=== PATIENT | female | born 1955 | race Caucasian/White ===

== ENCOUNTER 2017-07-29 16:34 | Emergency (ER) | payer MEDICARE ==
[2017-07-29] MEDS ORDERED: NORMAL SALINE 1,000 ML IV ONE (17:04)
[2017-07-29] MEDS ORDERED: ONDANSETRON HCL/PF 2 MG/ML VIAL IV ONE (17:04)
[2017-07-29 17:27] LABS: Hematocrit 28.8 % (37.0-47.0); Hemoglobin 8.3 gm/dL (12.5-16.0); Mean Cell Volume 73.7 fl (78-100); Mean Corpuscular Hemoglobin 21.2 pg (27-31); Mean Corpuscular Hgb Conc 28.8 g/dl (32-36); Mean Platelet Volume 8.8 fl (6.0-9.5); Neutrophil # 5.1 K/mm3 (1.3-6.0); Platelet Count 546 K/mm3 (150-450); Red Blood Count 3.91 M/mm3 (4.2-5.4); Red Cell Distribution Width 16.6 % (11.5-14.0); White Blood Count 7.2 K/mm3 (4.0-10.5)
--- NOTE | 2017-07-29 17:29 | ERNOTE ---
ER Female HPI Date of Service: 07/29/17 Stated Complaint: N/V, URINARY PAIN Presenting Symptoms: dysuria Time Seen by Provider: 07/29/17 16:57 Source: patient Exam Limitations: no limitations Immunizations: IMMUNIZATION HX Immunizations Up to Date Yes History of Influenza Vaccine No Hx Pneumococcal Vaccination No Allergies/Adverse Reactions: Allergies acetaminophen [From Tylenol] Adverse Reaction (Severe, Verified 07/29/17 16:53) Other Home Medications: HOME MEDICATIONS Levofloxacin [Levaquin] 500 mg PO DAILY 07/29/17 [Last Taken Unknown] Ondansetron [Zofran Odt] 4 mg PO Q6H PRN #20 tab 07/29/17 [Last Taken Unknown] Phenazopyridine HCl [Azo Urinary Pain Relief] 97.5 mg PO PRN PRN 07/29/17 [Last Taken Unknown] traMADol HCL [Tramadol HCl] 50 mg PO Q6H PRN 07/29/17 [Last Taken Unknown] - History of Present Illness Narrative: Pt. comes in with c/o dysuria, fever, malaise, abd pain, NVD, recent injury, but states that movement, palpation, and eating exacerbates the pain and nothing alleviates the pain or nausea despite taking AZO and tramadol for the pain. Pt. states that she saw hwe PCP two days ago and was started on the abx and pain medication for a UTI, but states that she has worsened since. Timing: Present: getting worse Quality: Present: moderate, cramping Onset Location: Present: RLQ, LLQ, suprapubic, other - BUQ Radiation: Present: right flank, left flank Activities at Onset: Present: none Prior Abdominal Problems: Present: none Modifying Factors - (Improves): Present: other - none Modifying Factors - (Worsens): Present: movement Associated Symptoms: Present: fever/chills, abdominal pain, dysuria, urinary frequency, polyuria Prior Treatment: Present: treated by physician, currently on antibiotics Review of Systems - Review of Systems Constitutional: Present: fever, chills, weakness, fatigue, malaise EYE: Present: no symptoms reported ENT: Present: no symptoms reported Respiratory: Present: no symptoms reported. Absent: shortness of breath, cough , wheezing Cardiology: Present: no symptoms reported. Absent: chest pain, palpitations, edema Gastrointestinal/Abdominal: Present: nausea, vomiting, abdominal pain. Absent: diarrhea, constipation Genitourinary: Present: frequency, pain - suprapupbic, dysuria Musculoskeletal: Present: no symptoms reported. Absent: back pain, joint pain Skin: Present: no symptoms reported. Absent: rash, lesions, lumps, change in color, change in hair/nails Neurological: Present: no symptoms reported. Absent: headache, dizziness/light- headedness, numbness, tingling, tremors Endocrine: Present: no symptoms reported Hematologic/Lymphatic: Present: no symptoms reported All Other Systems: All systems neg except as marked - Patient's Past Medical History Patient History - Medical: Depression, UTI'S Patient History - Cardiac/Respiratory: Hypertension Patient History - Cancer: No Hx of Cancer Patient History - Surgical Procedures: Gastric Bypass Patient History - Other: None - Social History Living Situations: home Psych History: Hx of Depression Smoking Status: Never smoker Alcohol Use: occasionally Drug Use: none - Immunizations Immunizations Up to Date: Yes Hx Pneumococcal Vaccination: No History of Influenza Vaccine: No Physical Exam - Physical Exam General Appearance: Present: wd/wn, alert, no apparent distress Head Exam: Present: normal inspection, no evidence of injury Eye Exam: Normal inspection: bilateral, PERRL: bilateral, EOMI: bilateral Ears, Nose, Throat: Present: normal ENT inspection, normal pharynx Neck: Present: normal inspection, nontender. Absent: lymphadenopathy (R), lymphadenopathy (L) Respiratory: Present: no respiratory distress, normal breath sounds, no accessory muscle use, chest nontender, lungs clear Cardiovascular/Chest: Present: regular rate, rhythm, no murmur, normal peripheral pulses Gastrointestinal/Abdominal: Present: normal bowel sounds, soft, tenderness - diffuse, hepatomegaly, other - splenomegaly. Absent: distended, rebound, mass Back Exam: Present: normal range of motion, no vertebral tenderness, CVA tenderness (R), CVA tenderness (L) Extremity Exam: Present: normal inspection, non-tender, normal range of motion, no edema Neurological Exam: Present: alert, oriented, normal mood/affect, no motor/ sensory deficits, ticket broker II-XII nml as tested, normal cerebellar test Skin Exam: Present: normal color, warm/dry. Absent: skin rash ED Progress - Date and Time Seen: Date and Time: 07/29/17 20:[address] Sams and he recommends having pt. follow up with amanda celaya later this week to evaluate for liver failure. - Results and Orders Patient's Lab Results:: I have reviewed the patient's lab results. - Vital Signs Patient's Vital Signs:: I have reviewed the patient's vital signs. Vital Signs: Vital Signs 07/29/17 16:45 Temperature 37.2 C Pulse Rate 87 Respiratory 20 Rate Blood Pressure 165/84 O2 Sat by Pulse 98 Oximetry - Progress/Reassessment Chief Complaint: Genitourinary Problem Departure Clinical Impression: Acute liver failure Qualifiers: Hepatic coma status: without hepatic coma Qualified Code(s): K72.00 - Acute and subacute hepatic failure without coma Anemia Qualifiers: Anemia type: unspecified type Qualified Code(s): D64.9 - Anemia, unspecified - Departure Disposition: Home self-care Condition: Fair Instructions: Anemia, Nonspecific, Liver Function Tests Additional Instructions: Please follow up with Amanda celaya for further evaluation in 1-2 days. Please stop levaquin and azo. Prescriptions: Ondansetron [Zofran Odt] 4 mg PO Q6H PRN #20 tab PRN Reason: Nausea
[2017-07-29 17:31] LABS: Urine Bilirubin Negative (NEGATIVE); Urine Blood Negative /ul (NEGATIVE); Urine Ketone Negative (NEGATIVE); Urine Nitrite Negative (NEGATIVE); Urine Protein 30 mg/dL (NEGATIVE); Urine Urobilinogen 4 EU/dl (NORMAL)
[2017-07-29 17:42] LABS: Urine Appearance Slightly Cloudy; Urine Color Orange
[2017-07-29 17:43] LABS: Urine Bacteria None Seen; Urine Hyaline Cast 0-5 /LPF; Urine RBC None Seen /hpf (0-5); Urine WBC 0-5 /hpf (0-5)
[2017-07-29 17:45] LABS: Albumin * 3.3 gm/dl (3.4-5.0); Anion Gap 12.5 mmol/L (6.8-13.8); BUN/Creatinine Ratio 21.7 (9.0-21.6); Bilirubin, Total 0.4 mg/dL (0.0-1.1); Ca. Corrected For Albumin 9.5 mg/dL (8.4-10.2); Calcium * 9.3 mg/dL (7.9-10.9); Carbon Dioxide 30.1 mmol/L (24-32.6); Potassium 4.6 mmol/L (3.4-4.6); Total Protein 7.2 gm/dL (6.2-8.2)
[2017-07-29] MEDS ORDERED: ONDANSETRON 4 MG TAB.RAPDIS ONE (17:55)
[2017-07-29] MEDS ORDERED: ONDANSETRON 4 MG TAB.RAPDIS PO ONE (17:56)
[2017-07-29 18:30] LABS: Amylase * 33 U/L (25-115); Lipase 134 U/L (73-393)
[2017-07-29 20:27] VITALS: BP 137/68
== END 2017-07-29 20:36 | disposition home or self-care (01) ==
LOC: ER 16:34
DX: K72.00 Acute and subacute hepatic failure without coma (principal); D64.9 Anemia, unspecified; Z87.440 Personal history of urinary (tract) infections

== ENCOUNTER 2019-01-06 13:39 | Observation (INO) ==
--- NOTE | 2019-01-06 13:53 | ERNOTE ---
Medical Problem HPI - Narrative Date of Service: 01/06/19 - General Chief Complaint: Screening, Blood Pressure Time Seen by Provider: 01/06/19 13:52 Source: patient Exam Limitations: no limitations - Immun/Allergies/Home Medications Immunizations: IMMUNIZATION HX Immunizations Up to Date Yes History of Influenza Vaccine No Hx Pneumococcal Vaccination No Allergies/Adverse Reactions: Allergies acetaminophen [From Tylenol] Adverse Reaction (Severe, Verified 01/06/19 16:15) Other elevated LFTs, flu-like symptoms Home Medications: HOME MEDICATIONS HYDROcodone/ACETAMINOPHEN [Hydrocodone-Acetamin 5-325 mg] 1 tab PO BID PRN 01/06/19 [Last Taken Unknown] Pregabalin [Lyrica] 50 mg PO BID 01/06/19 [Last Taken Unknown] Ferrous Sulfate 325 mg PO DAILY #90 tab 01/07/19 [Last Taken Unknown] Lisinopril [Zestril] 10 mg PO DAILY #30 tab 01/07/19 [Last Taken Unknown] Sulfamethoxazole/Trimethoprim [Bactrim] 1 tab PO BID #9 tab 01/07/19 [Last Taken Unknown] - Pain Score Pain Score #1 Pain Score: 0 - History of Present History Narrative: The patient is a 63 year old female who presents for hypertension which has been present for 3 weeks. There are associated symptoms of vision changes, dizziness and fatigue. The patient denies pain. There are no alleviating factors. There are no aggravating factors. Previous treatments have included: recent treatment with Cymbalta then changed to Lyrica and Metoprolol. The past medical history includes: HTN. The social history is negative. The patient has had no ill contacts. Patient was sent to ER from physical therapy due to elevated blood pressure during treatment. Patient states she had MRI yesterday due to vision changes and tremor to right upper extremity that she developed following taking Cymbalta. Patient states she was stopped and switched to Lyrica. Patient denies taking NSAID therapy. Review of Systems - Review of Systems Constitutional: Present: fatigue. Absent: recent illness, fever EYE: Present: vision changes ENT: Absent: ear pain, nasal drainage, sore throat Respiratory: Present: shortness of breath. Absent: cough Cardiology: Present: no symptoms reported. Absent: chest pain Gastrointestinal/Abdominal: Present: no symptoms reported. Absent: nausea, vomiting, diarrhea Genitourinary: Present: no symptoms reported. Absent: dysuria Musculoskeletal: Present: no symptoms reported Skin: Present: no symptoms reported. Absent: rash Neurological: Present: dizziness/light-headedness, tremors - right upper extremity Endocrine: Present: no symptoms reported All Other Systems: All systems neg except as marked Medical History (Updated 01/06/19 @ 13:49 by Vonnie Haley RN) Hx of colonic polyps Hx of primary hypertension Surgical History: Surgical History (Updated 01/06/19 @ 13:49 by Vonnie Haley RN) History of mandibular surgery Hx of appendectomy Hx of gastric bypass Hx of rotator cuff surgery Hx of tubal ligation Family History: Family History (Updated 01/06/19 @ 13:50 by Vonnie Haley RN) Mother Hx of primary hypertension Social History: Preferred Language Belarusian Do you have any methodist or No cultural preference? Smoking Status Never smoker Psych History Hx of Depression No Social History Section defined Physical Exam - Physical Exam General Appearance: Present: wd/wn, alert, no apparent distress Head Exam: Present: normal inspection, no evidence of injury Eye Exam: PERRL: bilateral, EOMI: bilateral, Conjunctivae pale: bilateral Ears, Nose, Throat: Present: normal ENT inspection, normal pharynx Neck: Present: normal inspection, nontender Respiratory: Present: no respiratory distress, normal breath sounds, no accessory muscle use, lungs clear Cardiovascular/Chest: Present: regular rate, rhythm, no murmur Extremity Exam: Present: other - uncontrollable tremor to right upper extremity Neurological Exam: Present: alert, oriented, normal mood/affect, no motor/sensory deficits, creative guru II-XII nml as tested, normal cerebellar test Skin Exam: Present: warm/dry, pallor Progress - Date and Time Seen: Date and Time: 01/06/19 14:45 Spoke with will admit for symptomatic anemia and HTN. Will order 2 units PRBC for transfusion. - Results and Orders Patient's Lab Results:: I have reviewed the patient's lab results. - Vital Signs Patient's Vital Signs:: I have reviewed the patient's vital signs. Vital Signs: Vital Signs 01/06/19 13:44 Temperature 37.3 C Pulse Rate 81 Respiratory Rate 17 Blood Pressure 170/83 H O2 Sat by Pulse Oximetry 93 - CT/Ultrasound CT/Ultrasound Narrative: Review of MRI brain obtained from [facility] that was completed 01/05/2019. - Progress/Reassessment Chief Complaint: Screening, Blood Pressure Departure Clinical Impression: Symptomatic anemia Hypertension Qualifiers: Hypertension type: unspecified Qualified Code(s): I10 - Essential (primary) hypertension - Departure Disposition: Still a patient Condition: Good
[2019-01-06 14:20] LABS: Mean Cell Volume 70.3 fl (78-100); Mean Corpuscular Hemoglobin 18.9 pg (27-31); Mean Corpuscular Hgb Conc 26.9 g/dl (32-36); Mean Platelet Volume 8.2 fl (8-12.5); Neutrophil # 4.3 K/mm3 (1.3-6.0); Platelet Count 480 K/mm3 (150-450); Red Cell Distribution Width 18.6 % (11.5-14.0); White Blood Count 6.7 K/mm3 (4.0-10.5)
[2019-01-06 14:40] LABS: Albumin * 3.5 gm/dl (3.4-5.0); Anion Gap 9.7 mmol/L (6.8-13.8); BUN/Creatinine Ratio 12.3 (9.0-21.6); Bilirubin, Total 0.3 mg/dL (0.0-1.1); Ca. Corrected For Albumin 9.3 mg/dL (8.4-10.2); Calcium * 9.2 mg/dL (7.9-10.9); Carbon Dioxide 30.3 mmol/L (24-32.6); TSH * 1.343 uIU/mL (0.358-3.74); Total Protein 7.2 gm/dL (6.2-8.2)
[2019-01-06 16:21] LABS: Hematocrit 26.5 % (37.0-47.0); Mean Cell Volume 70.3 fl (78-100); Mean Corpuscular Hemoglobin 19.1 pg (27-31); Mean Corpuscular Hgb Conc 27.2 g/dl (32-36); Mean Platelet Volume 8.8 fl (8-12.5); Neutrophil # 4.5 K/mm3 (1.3-6.0); Neutrophil % 59.5 % (42-75.0); Platelet Count 494 K/mm3 (150-450); Red Blood Count 3.77 M/mm3 (4.2-5.4); Red Cell Distribution Width 18.6 % (11.5-14.0); White Blood Count 7.6 K/mm3 (4.0-10.5)
--- NOTE | 2019-01-06 16:29 | HP ---
Chief Complaint - Chief Complaint Date of Service: 01/06/19 Time of Service: 15:55 Chief Complaint: anemia, HTN History of Present Illness: Patient with PMHx of recently diagnosed HTN and new onset tremor. She went to PT this morning for shoulder therapy, and her BP was elevated, and she was sent to the ED. She was recently started on metoprolol for her BP. She also had some medication changes, from cymbalta to lyrica for a right arm tremor, for which she is seeing neurology. BP was 170/83 in the ED. Labs were done, and Hgb was 7.0. She has been having some shortness of breath with exertion, and she was admitted for symptomatic anemia. On my exam, she is comfortable, denying active SOB, does not appear pale, and is not tachycardic. Medical History (Updated 01/06/19 @ 14:48 by AMY Goldman) Hx of colonic polyps Hx of primary hypertension Surgical History: Surgical History (Updated 01/06/19 @ 13:49 by Vonnie Haley RN) History of mandibular surgery Hx of appendectomy Hx of gastric bypass Hx of rotator cuff surgery Hx of tubal ligation Family History: Family History (Updated 01/06/19 @ 13:50 by Vonnie Haley RN) Mother Hx of primary hypertension Social History: Preferred Language Estonian Do you have any moravian or No cultural preference? Smoking Status Never smoker Psych History Hx of Depression No Social History Section defined Review Of Systems (GEN) - Review of Systems Generalized/Overall Review: Absent: Fever EENTM: Present: Other - has decreased left peripheral vision when her BP is high Cardiac: Absent: Chest Pain, Edema Abdominal: Absent: Nausea Genitourinary: Present: No Symptoms Reported Neurological: Present: Other - right forearm and hand tremor Immunizations: IMMUNIZATION HX Immunizations Up to Date Yes History of Influenza Vaccine No Hx Pneumococcal Vaccination No Allergies/Adverse Reactions: Allergies Allergy/AdvReac Type Severity Reaction Status Date / Time acetaminophen [From Tylenol] AdvReac Severe Other Verified 01/06/19 16:15 Home Medications: HOME MEDICATIONS HYDROcodone/ACETAMINOPHEN [Hydrocodon-Acetaminophen 5-325] 1 ea PO PRN PRN 01/06/19 [Last Taken Unknown] Metoprolol Tartrate [Lopressor] 25 mg PO DAILY 01/06/19 [Last Taken Unknown] Pregabalin [Lyrica] 50 mg PO BID 01/06/19 [Last Taken Unknown] Exam - Exam Vital Signs: Vital Signs - Last Taken Temp 37.3 C 01/06/19 15:23 Pulse 81 01/06/19 15:23 Resp 17 01/06/19 15:23 BP 177/77 H 01/06/19 15:23 Pulse Ox 93 01/06/19 15:23 Constitutional: Present: Alert, Oriented x3, Cooperative, Well developed, No distress Respiratory: Present: lungs clear, normal breath sounds Cardiovascular/Chest: Present: regular rate, rhythm Abdomen: Present: soft, nontender Neurologic: Present: normal mood/affect Eye contact: Present: cooperative Diagnostic Studies: Abnormal Lab Results 01/06/19 01/06/19 Range/Units 14:13 14:55 RBC 3.70 L (4.2-5.4) M/mm3 Hgb 7.0 L* (12.5-16.0) gm/dL Hct 26.0 L (37.0-47.0) % MCV 70.3 L (78-100) fl MCH 18.9 L (27-31) pg MCHC 26.9 L (32-36) g/dl RDW 18.6 H (11.5-14.0) % Plt Count 480 H (150-450) K/mm3 Immature Gran % (Auto) 0.50 H (0.001-0.429) % Crossmatch See Detail Laboratory Results WBC 6.7 K/mm3 (4.0-10.5) 01/06/19 14:13 RBC 3.70 M/mm3 (4.2-5.4) L 01/06/19 14:13 Hgb 7.0 gm/dL (12.5-16.0) L* 01/06/19 14:13 Hct 26.0 % (37.0-47.0) L 01/06/19 14:13 MCV 70.3 fl (78-100) L 01/06/19 14:13 MCH 18.9 pg (27-31) L 01/06/19 14:13 MCHC 26.9 g/dl (32-36) L 01/06/19 14:13 RDW 18.6 % (11.5-14.0) H 01/06/19 14:13 Plt Count 480 K/mm3 (150-450) H 01/06/19 14:13 MPV 8.2 fl (8-12.5) 01/06/19 14:13 Immature Gran % (Auto) 0.50 % (0.001-0.429) H 01/06/19 14:13 Immature Gran # (Auto) 0.03 K/mm3 (0.000-0.0310) 01/06/19 14:13 64.0 % (42-75.0) 01/06/19 14:13 26.3 % (20-51) 01/06/19 14:13 6.3 % (0.0-9) 01/06/19 14:13 2.0 % (0.0-3.0) 01/06/19 14:13 0.9 % (0.0-1.0) 01/06/19 14:13 Nucleated RBC % 0.0 k/mm3 (0-1) 01/06/19 14:13 4.3 K/mm3 (1.3-6.0) 01/06/19 14:13 1.75 k/mm3 (1.5-3.5) 01/06/19 14:13 0.4 k/mm3 (0.0-1.0) 01/06/19 14:13 0.1 k/mm3 (0.0-0.7) 01/06/19 14:13 Absolute Basophils 0.1 k/mm3 (0.0-0.1) 01/06/19 14:13 Sodium 141 mmol/L (132-142) 01/06/19 14:13 141 mmol/L (130-142) 01/06/19 14:13 Potassium 4.0 mmol/L (3.4-4.6) 01/06/19 14:13 Chloride 105 mmol/L (97-106) 01/06/19 14:13 Carbon Dioxide 30.3 mmol/L (24-32.6) 01/06/19 14:13 9.7 mmol/L (6.8-13.8) 01/06/19 14:13 BUN 7 mg/dL (3-23) 01/06/19 14:13 0.57 mg/dL (0.4-1.4) 01/06/19 14:13 Est GFR (Non-Af Amer) 115 mL/min (60-130) D 01/06/19 14:13 12.3 (9.0-21.6) 01/06/19 14:13 101 mg/dL (70-110) 01/06/19 14:13 Calcium 9.2 mg/dL (7.9-10.9) 01/06/19 14:13 Calcium Adj for Albumin 9.3 mg/dL (8.4-10.2) 01/06/19 14:13 0.3 mg/dL (0.0-1.1) 01/06/19 14:13 AST 21 U/L (0-48) 01/06/19 14:13 ALT 21 U/L (19-67) 01/06/19 14:13 116 U/L (50-170) 01/06/19 14:13 7.2 gm/dL (6.2-8.2) 01/06/19 14:13 3.5 gm/dl (3.4-5.0) 01/06/19 14:13 TSH 1.343 uIU/mL (0.358-3.74) 01/06/19 14:13 Negative 01/06/19 14:33 Blood Type O Positive 01/06/19 14:55 Antibody Screen Negative 01/06/19 14:55 Crossmatch See Detail 01/06/19 14:55 Assessment/Plan - Assessment/Plan (1) Anemia Assessment: She is not tachycardic, and does not appear pale on exam. Will repeat stat CBC to verify the labs done in the ED. If she is actually lower than 7.0, will give one unit PRBC. If she is above 7.0, she does not have cardiac history, and transfusion not needed. She reports no signs of blood loss, and does not have renal failure. If that initial CBC was accurate, her MCV is low, indicating possible iron deficiency anemia, and would recommend iron replacement. Problem: Acute (2) Hypertension Assessment: Will start 10 mg lisinopril, with the goal of gradually decreasing her BP over the next few weeks. Stop metoprolol. Problem: Acute Qualifiers: Hypertension type: unspecified Qualified Code(s): I10 - Essential (primary) hypertension (3) Tremor Assessment: continue home lyrica. She is established with neurology, and will be seeing them next week. Problem: Acute
[2019-01-06] MEDS: LISINOPRIL 10 MG TABLET PO SCH (16:32)
[2019-01-06 16:34] LABS: Hemoglobin 7.2 gm/dL (12.5-16.0)
[2019-01-06] MEDS: FERROUS SULFATE 325 MG TABLET PO SCH (17:56)
[2019-01-06] MEDS: HYDROcodone/ACETAMINOPHEN 1 EACH TABLET PO PRN (18:51)
[2019-01-06] MEDS: PREGABALIN 50 MG CAPSULE PO SCH (21:14)
[2019-01-07 05:31] LABS: Hematocrit 24.1 % (37.0-47.0); Mean Cell Volume 70.3 fl (78-100); Mean Platelet Volume 8.4 fl (8-12.5); Neutrophil # 4.6 K/mm3 (1.3-6.0); Neutrophil % 60.4 % (42-75.0); Platelet Count 442 K/mm3 (150-450); Red Blood Count 3.43 M/mm3 (4.2-5.4); Red Cell Distribution Width 18.6 % (11.5-14.0); White Blood Count 7.6 K/mm3 (4.0-10.5)
[2019-01-07 06:35] LABS: Hemoglobin 6.5 gm/dL (12.5-16.0)
[2019-01-07] MEDS: HYDROcodone/ACETAMINOPHEN 1 EACH TABLET PO PRN (07:16)
[2019-01-07] MEDS: FERROUS SULFATE 325 MG TABLET PO SCH (08:35)
[2019-01-07] MEDS: LISINOPRIL 10 MG TABLET PO SCH (08:35)
[2019-01-07] MEDS: PREGABALIN 50 MG CAPSULE PO SCH (08:38)
--- NOTE | 2019-01-07 09:59 | DS ---
(1) Anemia Problem: Chronic Qualifiers: Anemia type: iron deficiency (2) Hypertension Problem: Acute Qualifiers: Hypertension type: unspecified Qualified Code(s): I10 - Essential (primary) hypertension (3) Tremor Problem: Acute (4) UTI (urinary tract infection) Problem: Acute Description of Stay: Patient with PMHx of recently diagnosed HTN and new onset tremor. She went to PT on the day of admission for shoulder therapy, and her BP was elevated, and she was sent to the ED. She was recently started on metoprolol for her BP, but it remains elevated, at 170/83 in the ED. Metoprolol was changed to 10 mg lisinopril, with an improvement in her BP. She also had some medication changes, from cymbalta to lyrica for a right arm tremor, for which she is seeing neurology. Labs were done, and Hgb was 7.0. Chart review showed previous Hgb of 8.0 in 2017. She was not pale or tachycardic on admission exam, and PRBC were held, as it was felt she was close to her baseline and asymptomatic. No abnormalities on CMP. Negative occult stool. The following morning, her Hgb was 6.5, and she was transfused one U PRBC. H&H one hour post transfusion was 7.6. She reported having some pink tinged urine about a month ago, but it hadn't happened since. UA was checked for blood, which was positive for blood nitrates, leuk esterase, and bacteria. She was started on bactrim. No other signs of active blood loss. Her MCV was 70.3, and it was felt her anemia is secondary to iron deficiency. Procedures Performed: none Results and Findings: Lab Pending Results 01/06/19 14:13: WBC 6.7, RBC 3.70 L, Hgb 7.0 L*, Hct 26.0 L, MCV 70.3 L, MCH 18.9 L, MCHC 26.9 L, RDW 18.6 H, Plt Count 480 H, MPV 8.2, Immature Gran % (Auto) 0.50 H, Immature Gran # (Auto) 0.03, Neutrophils % 64.0, Lymphocytes % 26.3, Monocytes % 6.3, Eosinophils % 2.0, Basophils % 0.9, Nucleated RBC % 0.0, Neutrophils # 4.3, Lymphocytes # 1.75, Monocytes # 0.4, Eosinophils # 0.1, Absolute Basophils 0.1 01/06/19 14:13: Sodium 141, Plasma Sodium 141, Potassium 4.0, Chloride 105, Carbon Dioxide 30.3, Anion Gap 9.7, BUN 7, Creatinine 0.57, Est GFR (Non-Af Amer) 115 D, BUN/Creatinine Ratio 12.3, Random Glucose 101, Calcium 9.2, Ray cium Adj for Albumin 9.3, Total Bilirubin 0.3, AST 21, ALT 21, Alkaline Phosphatase 116, Total Protein 7.2, Albumin 3.5, TSH 1.343 01/06/19 14:33: Stool Occult Blood Negative 01/06/19 14:55: Blood Type O Positive, Antibody Screen Negative, Crossmatch See Detail 01/06/19 16:19: WBC 7.6, RBC 3.77 L, Hgb 7.2 L*, Hct 26.5 L, MCV 70.3 L, MCH 19.1 L, MCHC 27.2 L, RDW 18.6 H, Plt Count 494 H, MPV 8.8, Immature Gran % (Auto) 0.30, Immature Gran # (Auto) 0.02, Neutrophils % 59.5, Lymphocytes % 31.1, Monocytes % 6.2, Eosinophils % 2.0, Basophils % 0.9, Nucleated RBC % 0.0, Neutrophils # 4.5, Lymphocytes # 2.36, Monocytes # 0.5, Eosinophils # 0.2, Absolute Basophils 0.1 01/07/19 05:25: WBC 7.6, RBC 3.43 L, Hgb 6.5 L*, Hct 24.1 L, MCV 70.3 L, MCH 19.0 L, MCHC 27.0 L, RDW 18.6 H, Plt Count 442, MPV 8.4, Immature Gran % (Auto) 0.40, Immature Gran # (Auto) 0.03, Neutrophils % 60.4, Lymphocytes % 29.6, Monocytes % 6.7, Eosinophils % 2.2, Basophils % 0.7, Nucleated RBC % 0.0, Neutrophils # 4.6, Lymphocytes # 2.25, Monocytes # 0.5, Eosinophils # 0.2, Absolute Basophils 0.1 Discharge Location: Home Disposition: Home self-care Condition: Good Discharge Activity: Activity as tolerated Discharge Diet: General/regular food Additional Patient Instructions (free text): -Please make TCM appointment unless senior living discharge. Thank you! Miriam @ [phone]. F/U appointment with Dr Valdovinos. She agreed to be patient's PCP. Prescriptions (Any new or edited meds): Sulfamethoxazole/Trimethoprim [Bactrim] 1 tab PO BID #9 tab Ferrous Sulfate 325 mg PO DAILY #90 tab Lisinopril [Zestril] 10 mg PO DAILY #30 tab Complete Home Medications List: Complete Home Medication List: HYDROcodone/ACETAMINOPHEN [Hydrocodone-Acetamin 5-325 mg] 1 tab PO BID PRN 01/06/19 Pregabalin [Lyrica] 50 mg PO BID 01/06/19 Ferrous Sulfate 325 mg PO DAILY #90 tab 01/07/19 Lisinopril [Zestril] 10 mg PO DAILY #30 tab 01/07/19 Sulfamethoxazole/Trimethoprim [Bactrim] 1 tab PO BID #9 tab 01/07/19
[2019-01-07 10:21] LABS: Urine Appearance Cloudy (CLEAR); Urine Color Yellow
[2019-01-07 10:22] LABS: Urine Bilirubin Negative (NEGATIVE); Urine Ketone Negative (NEGATIVE)
[2019-01-07 10:23] LABS: Urine Nitrite Positive (NEGATIVE); Urine Protein Negative (NEGATIVE); Urine Urobilinogen Normal (NORMAL)
[2019-01-07 10:24] LABS: Urine Bacteria 4+; Urine Blood 25 /ul (NEGATIVE); Urine RBC 0-5 /hpf (0-5); Urine WBC >50 /hpf (0-5)
[2019-01-07] MEDS ORDERED: SULFAMETHOXAZOLE/TRIMETHOPRIM 1 TAB TABLET PO SCH (11:00)
[2019-01-07 11:23] LABS: Hematocrit 27.8 % (37.0-47.0)
[2019-01-07 11:44] LABS: Hemoglobin 7.6 gm/dL (12.5-16.0)
[2019-01-07 12:51] VITALS: BP 137/53
== END 2019-01-07 13:25 | disposition home or self-care (01) ==
LOC: ER 13:39 → SCU 13:39 → MS 15:39
PROVIDERS: ADMIT Family Medicine; ATTEND Family Medicine
DX: D64.9 Anemia, unspecified; I10 Essential (primary) hypertension; N39.0 Urinary tract infection, site not specified
CPT/HCPCS: 36415; 36430; 80053; 81001; 82272; 84443; 85014; 85018; 85025; 86850; 87077; 87086; 87186; 99285; G0378; P9016